=== PATIENT | female | born 1945 | race Caucasian/White ===

== ENCOUNTER 2017-11-14 00:43 | Emergency (ER) | payer OTHER ==
[2017-11-14] MEDS ORDERED: ASPIRIN 81 MG CHEWABLE TABLET ONE (01:33)
[2017-11-14] MEDS ORDERED: FAMOTIDINE 20 MG/2 ML VIAL IV ONE (01:33)
[2017-11-14] MEDS ORDERED: ENOXAPARIN 60 MG/0.6 ML SQ ONE (01:34)
--- NOTE | 2017-11-14 01:37 | EDPHYS ---
Physician Documentation [facility] Name: Huma Barrera Age: 72 yrs Sex: Female : 1945 Arrival Date: 11/14/2017 Time: 00:45 Bed 14 Private MD: ED Physician Dominick Morin HPI: 11/14 01:03 This 72 yrs old Female presents to ER via Ambulatory with complaints of Chest marly Pain, Shortness Of Breath. 01:03 The patient or guardian reports chest pain that is located primarily in the substernal marly area, anterior chest wall. Onset: gradually. The pain radiates to Associated signs and symptoms: Pertinent positives: abdominal pain, shortness of breath. The chest pain is described as a heaviness, a pressure, sharp. Duration: The patient or guardian reports multiple episodes, with no pattern. Modifying factors: The symptoms are alleviated by nothing. the symptoms are aggravated by nothing. Severity of pain: At its worst the pain was mild moderate in the emergency department the pain has improved moderately. The patient has experienced similar episodes in the past, multiple times. 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 - Social history:: Smoking status: Patient/guardian denies using tobacco, Patient/guardian denies using alcohol, street drugs. - Ebola Screening: : No symptoms or risks identified at this time. ROS: 01:03 Constitutional: Negative for fever, chills, and weight loss, Eyes: Negative for injury, marly pain, redness, and discharge, ENT: Negative for injury, pain, and discharge, Neck: Negative for injury, pain, and swelling, Cardiovascular: Negative for chest pain, palpitations, and edema, Abdomen/GI: Negative for abdominal pain, nausea, vomiting, diarrhea, and constipation, Back: Negative for injury and pain, : Negative for injury, bleeding, discharge, and swelling, MS/Extremity: Negative for injury and deformity, Skin: Negative for injury, rash, and discoloration, Neuro: Negative for headache, weakness, numbness, tingling, and seizure, Psych: Negative for depression, anxiety, suicide ideation, homicidal ideation, and hallucinations, Allergy/Immunology: Negative for hives, rash, and allergies, Endocrine: Negative for neck swelling, polydipsia, polyuria, polyphagia, and marked weight changes, Hematologic/Lymphatic: Negative for swollen nodes, abnormal bleeding, and unusual bruising. 01:03 Respiratory: Positive for cough, dyspnea on exertion, shortness of breath, wheezing, expiratory. Exam: 01:03 Constitutional: This is a well developed, well nourished patient who is awake, alert, marly and in no acute distress. Head/Face: Normocephalic, atraumatic. Eyes: Pupils equal round and reactive to light, extra-ocular motions intact. Lids and lashes normal. Conjunctiva and sclera are non-icteric and not injected. Cornea within normal limits. Periorbital areas with no swelling, redness, or edema. ENT: Nares patent. No nasal discharge, no septal abnormalities noted. Tympanic membranes are normal and external auditory canals are clear. Oropharynx with no redness, swelling, or masses, exudates, or evidence of obstruction, uvula midline. Mucous membranes moist. Neck: Trachea midline, no thyromegaly or masses palpated, and no cervical lymphadenopathy. Supple, full range of motion without nuchal rigidity, or vertebral point tenderness. No Meningismus. Chest/axilla: Normal chest wall appearance and motion. Nontender with no deformity. No lesions are appreciated. Cardiovascular: Regular rate and rhythm with a normal S1 and S2. No gallops, murmurs, or rubs. Normal PMI, no JVD. No pulse deficits. Abdomen/GI: Soft, non-tender, with normal bowel sounds. No distension or tympany. No guarding or rebound. No evidence of tenderness throughout. Back: No spinal tenderness. No costovertebral tenderness. Full range of motion. Skin: Warm, dry with normal turgor. Normal color with no rashes, no lesions, and no evidence of cellulitis. MS/ Extremity: Pulses equal, no cyanosis. Neurovascular intact. Full, normal range of motion. Neuro: Awake and alert, GCS 15, oriented to person, place, time, and situation. Cranial nerves II-XII grossly intact. Motor strength 5/5 in all extremities. Sensory grossly intact. Cerebellar exam normal. Normal gait. Psych: Awake, alert, with orientation to person, place and time. Behavior, mood, and affect are within normal limits. 01:03 Musculoskeletal/extremity: DVT Exam: No signs of deep vein thrombosis. no pain, no swelling, no tenderness, negative Homans' sign noted on exam, no appreciated bluish discoloration, no erythema, no increased warmth. Vital Signs: 01:05 BP 170 / 85; Pulse 88; Resp 18 S; Pulse Ox 98% on R/A; Weight 64.41 kg (R); Height 5 bb ft. 6 in. (167.64 cm) (R); Pain 10/10; 01:19 BP 137 / 65; Pulse 76; Resp 18; Pulse Ox 97% on R/A; aa1 01:35 Temp 98.2(O); aa1 02:09 BP 131 / 71; Pulse 78; Resp 18; Pulse Ox 97% on R/A; aa1 02:35 BP 120 / 79; Pulse 70; Resp 18; Pulse Ox 96% on R/A; aa1 03:00 BP 130 / 68; Pulse 71; Resp 16; Pulse Ox 98% on R/A; Pain 8/10; aa1 04:00 BP 127 / 83; Pulse 72; Resp 16; Pulse Ox 100% on R/A; aa1 04:59 BP 117 / 60; Pulse 54; Resp 16; Pulse Ox 97% on R/A; Pain 5/10; aa1 01:05 Body Mass Index 22.92 (64.41 kg, 167.64 cm) bb MDM: 01:00 Patient medically screened. [facility] 01:06 Data reviewed: vital signs, nurses notes, lab test result(s), EKG, . [facility] 11/14 01:03 Order name: Basic Metabolic Panel [facility] 11/14 01:03 Order name: CBC with Diff; Complete Time: 03:03 [facility] 11/14 01:03 Order name: Ckmb; Complete Time: 03:03 [facility] 11/14 01:03 Order name: CPK; Complete Time: 03:03 [facility] 11/14 01:03 Order name: LFT's; Complete Time: 03:03 [facility] 11/14 01:03 Order name: Magnesium; Complete Time: 03:03 [facility] 11/14 01:03 Order name: NT PRO-BNP; Complete Time: 03:03 [facility] 11/14 01:03 Order name: PT-INR; Complete Time: 03:03 [facility] 11/14 01:03 Order name: Ptt, Activated; Complete Time: 03:03 [facility] 11/14 01:03 Order name: Troponin (emerg Dept Use Only); Complete Time: 03:03 [facility] 11/14 01:03 Order name: Lipase; Complete Time: 03:03 [facility] 11/14 01:03 Order name: Urine Culture [facility] 11/14 01:03 Order name: Basic Metabolic Panel; Complete Time: 03:03 [facility] 11/14 02:13 Order name: Urine Dipstick--Ancillary (enter results) fl 11/14 01:03 Order name: XRAY Chest (1 view) [facility] 11/14 01:03 Order name: Cardiac monitoring; Complete Time: 02:36 [facility] 11/14 01:03 Order name: CT Aorta for Dissection [facility] 11/14 01:41 Order name: CONS Physician Consult [facility] 11/14 03:07 Order name: EKG; Complete Time: 03:07 [facility] 11/14 01:03 Order name: EKG - Nurse/Tech; Complete Time: 02:36 [facility] 11/14 01:03 Order name: IV Saline Lock; Complete Time: 02:36 [facility] 11/14 01:03 Order name: Labs collected and sent; Complete Time: 02:36 [facility] 11/14 01:03 Order name: O2 Per Protocol; Complete Time: 02:36 [facility] 11/14 01:03 Order name: O2 Sat Monitoring; Complete Time: 02:37 [facility] 11/14 01:03 Order name: Urine Dipstick-Ancillary (obtain specimen); Complete Time: 02:37 [facility] 11/14 03:07 Order name: EKG - Nurse/Tech; Complete Time: 03:39 marly Administered Medications: 01:31 Not Given (Duplicate Order): Lopressor (metoprolol TARTRATE) 50 mg PO once marly 01:34 Drug: Aspirin Chewable Tablet 324 mg Route: PO; aa1 02:30 Follow up: Response: No adverse reaction aa1 01:35 Drug: Pepcid 20 mg Route: IVP; Site: right wrist; aa1 02:30 Follow up: Response: No adverse reaction aa1 01:35 Drug: Lovenox 1 mg/kg Route: Sub-Q; Site: right lower abdomen; aa1 02:30 Follow up: Response: No adverse reaction aa1 02:35 Not Given (Physician Discretion): Lopressor 25 mg PO once aa1 03:30 Drug: Lopressor 25 mg Route: PO; aa1 04:30 Follow up: Response: No adverse reaction aa1 03:30 Drug: PlaVIX 600 mg Route: PO; aa1 04:30 Follow up: Response: No adverse reaction aa1 03:30 Drug: Phenergan 12.5 mg Route: IVP; Site: right wrist; aa1 04:30 Follow up: Response: No adverse reaction; Nausea is decreased aa1 03:33 Drug: fentaNYL (PF) 25 mcg Route: IVP; Site: right wrist; aa1 04:20 Follow up: Response: No adverse reaction; Pain is unchanged, physician notified aa1 04:25 Drug: fentaNYL (PF) 25 mcg Route: IVP; Site: right wrist; aa1 05:34 Follow up: Response: No adverse reaction; Pain is decreased aa1 Disposition: 11/14/17 03:[address] [facility]. Diagnosis are Other chest pain, Dyspnea, Non-ST elevation (NSTEMI) myocardial infarction. - Reason for transfer: Higher level of care. - [facility] - Condition is Fair. - Problem is new. - Symptoms have improved. Signatures: Dispatcher [employer] EDMA Heather Monsivais RN RN mw Kern, Alissa, RN RN aa1 Dominick Morin MD MD cha Ballard, Brenda, RN RN bb Corrections: (The following items were deleted from the chart) 01:42 01:37 Hospitalization Ordered by Jose Reeves MD for Observation. Preliminary [facility] diagnosis is Chest pain, unspecified. Bed requested for Telemetry/MedSurg (observation). Status is Observation. Condition is Fair. Problem is new. Symptoms have improved. UTI on Admission? No. marly 01:59 01:42 11/14/2017 01:37 Hospitalization Ordered by Jose Reeves MD for Observation. ashley Preliminary diagnosis is Chest pain, unspecified; Dyspnea. Bed requested for Telemetry/MedSurg (observation). Status is Observation. Condition is Fair. Problem is new. Symptoms have improved. UTI on Admission? No. marly 03:24 01:59 11/14/2017 01:37 Hospitalization Ordered by Jose Reeves MD for Observation. marly Preliminary diagnosis is Chest pain, unspecified; Dyspnea. Bed requested for Telemetry/MedSurg (observation). Status is Observation. Condition is Fair. Problem is new. Symptoms have improved. UTI on Admission? No. mw 03:45 03:27 11/14/2017 03:27 Transfer ordered to [facility]. Diagnosis is marly Other chest pain; Dyspnea; Non-ST elevation (NSTEMI) myocardial infarction. Reason for transfer: Higher level of care. Accepting physician is to [facility]. Condition is Fair. Problem is new. Symptoms have improved. marly 05:39 03:45 11/14/2017 03:[address] [facility]. Diagnosis is aa1 Other chest pain; Dyspnea; Non-ST elevation (NSTEMI) myocardial infarction. Reason for transfer: Higher level of care. [facility] Condition is Fair. Problem is new. Symptoms have improved. marly
--- NOTE | 2017-11-14 01:37 | ER ---
Nurse's Notes [facility] Name: Huma Barrera Age: 72 yrs Sex: Female : 1945 Arrival Date: 11/14/2017 Time: 00:45 Bed 14 Private MD: Diagnosis: Other chest pain;Dyspnea;Non-ST elevation (NSTEMI) myocardial infarction Presentation: 11/14 00:47 Presenting complaint: Patient states: she has been having chest pain since approx 1800 bb last night with shortness of breath and nausea. Transition of care: patient was not received from another setting of care. Onset of symptoms was November 13, 2017 at 18:00. Risk Assessment: Do you want to hurt yourself or someone else? Patient reports no desire to harm self or others. Initial Sepsis Screen: Does the patient meet any 2 criteria? No. Patient's initial sepsis screen is negative. Does the patient have a suspected source of infection? No. Patient's initial sepsis screen is negative. Care prior to arrival: None. 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 - Social history:: Smoking status: Patient/guardian denies using tobacco, Patient/guardian denies using alcohol, street drugs. - Ebola Screening: : No symptoms or risks identified at this time. Screenin:06 Abuse screen: Denies threats or abuse. Denies injuries from another. Nutritional aa1 screening: No deficits noted. Tuberculosis screening: No symptoms or risk factors identified. Fall Risk None identified. Assessment: 01:06 General: Appears in no apparent distress. comfortable, Behavior is calm, cooperative, aa1 appropriate for age. Pain: Complains of pain in chest Pain currently is 10 out of 10 on a pain scale. Quality of pain is described as burning, stinging, Pain began 1800 yesterday Is continuous. Neuro: Level of Consciousness is awake, alert, obeys commands, Oriented to person, place, time, situation, Moves all extremities. Full function Gait is steady, Speech is normal. Cardiovascular: Reports chest pain, nausea, palpitations, shortness of breath, Denies diaphoresis, syncope, vomiting, Heart tones S1 S2 present Capillary refill < 3 seconds Clubbing of nail beds is absent JVD is absent Patient's skin is warm and dry. Rhythm is regular. Respiratory: Reports cough that is non-productive, Airway is patent Respiratory effort is even, unlabored, Respiratory pattern is regular, symmetrical, Breath sounds are clear bilaterally. GI: Reports nausea, Patient currently denies abdominal pain, vomiting. : No signs and/or symptoms were reported regarding the genitourinary system. EENT: No signs and/or symptoms were reported regarding the EENT system. Derm: Skin is intact, is healthy with good turgor, Skin is pink, warm \T\ dry. Musculoskeletal: Circulation, motion, and sensation intact. Capillary refill < 3 seconds, Range of motion: intact in all extremities. 01:43 Reassessment: Patient appears in no apparent distress at this time. Patient and/or aa1 family updated on plan of care and expected duration. Pain level reassessed. Patient is alert, oriented x 3, equal unlabored respirations, skin warm/dry/pink. Awaiting lab results. 02:13 Reassessment: Patient appears in no apparent distress at this time. Patient and/or aa1 family updated on plan of care and expected duration. Pain level reassessed. Patient is alert, oriented x 3, equal unlabored respirations, skin warm/dry/pink. Pt taken to CT at this time. Bed assignment received however pt to stay in ED until CT has resulted. 03:00 Reassessment: Patient appears in no apparent distress at this time. Patient and/or aa1 family updated on plan of care and expected duration. Pain level reassessed. Patient is alert, oriented x 3, equal unlabored respirations, skin warm/dry/pink. Awaiting CT results. 04:00 Reassessment: Patient appears in no apparent distress at this time. Patient and/or aa1 family updated on plan of care and expected duration. Pain level reassessed. Patient is alert, oriented x 3, equal unlabored respirations, skin warm/dry/pink. Per MD pt to be transferred instead of being admitted to this facility. 04:53 Reassessment: Patient appears in no apparent distress at this time. Patient and/or aa1 family updated on plan of care and expected duration. Pain level reassessed. Patient is alert, oriented x 3, equal unlabored respirations, skin warm/dry/pink. Report given to Debbi Dean RN at [facility] Patient states feeling better. 05:20 Reassessment: Patient appears in no apparent distress at this time. Patient is alert, aa1 oriented x 3, equal unlabored respirations, skin warm/dry/pink. [facility] present for transport to [facility]. Vital Signs: 01:05 BP 170 / 85; Pulse 88; Resp 18 S; Pulse Ox 98% on R/A; Weight 64.41 kg (R); Height 5 bb ft. 6 in. (167.64 cm) (R); Pain 10/10; 01:19 BP 137 / 65; Pulse 76; Resp 18; Pulse Ox 97% on R/A; aa1 01:35 Temp 98.2(O); aa1 02:09 BP 131 / 71; Pulse 78; Resp 18; Pulse Ox 97% on R/A; aa1 02:35 BP 120 / 79; Pulse 70; Resp 18; Pulse Ox 96% on R/A; aa1 03:00 BP 130 / 68; Pulse 71; Resp 16; Pulse Ox 98% on R/A; Pain 8/10; aa1 04:00 BP 127 / 83; Pulse 72; Resp 16; Pulse Ox 100% on R/A; aa1 04:59 BP 117 / 60; Pulse 54; Resp 16; Pulse Ox 97% on R/A; Pain 5/10; aa1 01:05 Body Mass Index 22.92 (64.41 kg, 167.64 cm) bb ED Course: 00:45 Patient arrived in ED. al2 00:47 Cara Marrufo, RN is Primary Nurse. aa1 01:00 Dominick Morin MD is Attending Physician. marly 01:02 Triage completed. bb 01:05 Arm band placed on Patient placed in an exam room, on a stretcher, on monitor and storage bin tender, bb on pulse oximetry. EKG completed in triage. Results shown to MD. Family accompanied patient. 01:06 Patient has correct armband on for positive identification. Placed in gown. Bed in low aa1 position. Call light in reach. telemetry monitor on. Pulse ox on. NIBP on. 01:10 EKG done, by ED staff, reviewed by Dominick Morin MD. Patient maintains SpO2 saturation aa1 greater than 95% on room air. 01:12 Initial lab(s) drawn, by me, sent to lab. Inserted saline lock: 22 gauge in right aa1 wrist, using aseptic technique. Blood collected. 01:29 X-ray completed. Portable x-ray completed in exam room. Patient tolerated procedure kw well. 01:30 XRAY Chest (1 view) In Process Unspecified. EDMS 01:36 Jose Reeves MD is Hospitalizing Provider. marly 02:09 No provider procedures requiring assistance completed. Patient admitted, IV remains in aa1 place. 02:35 CT completed. Patient tolerated procedure well. Patient moved to CT via stretcher. Patient moved back from CT. Administered Medications: 01:31 Not Given (Duplicate Order): Lopressor (metoprolol TARTRATE) 50 mg PO once marly 01:34 Drug: Aspirin Chewable Tablet 324 mg Route: PO; aa1 02:30 Follow up: Response: No adverse reaction aa1 01:35 Drug: Pepcid 20 mg Route: IVP; Site: right wrist; aa1 02:30 Follow up: Response: No adverse reaction aa1 01:35 Drug: Lovenox 1 mg/kg Route: Sub-Q; Site: right lower abdomen; aa1 02:30 Follow up: Response: No adverse reaction aa1 02:35 Not Given (Physician Discretion): Lopressor 25 mg PO once aa1 03:30 Drug: Lopressor 25 mg Route: PO; aa1 04:30 Follow up: Response: No adverse reaction aa1 03:30 Drug: PlaVIX 600 mg Route: PO; aa1 04:30 Follow up: Response: No adverse reaction aa1 03:30 Drug: Phenergan 12.5 mg Route: IVP; Site: right wrist; aa1 04:30 Follow up: Response: No adverse reaction; Nausea is decreased aa1 03:33 Drug: fentaNYL (PF) 25 mcg Route: IVP; Site: right wrist; aa1 04:20 Follow up: Response: No adverse reaction; Pain is unchanged, physician notified aa1 04:25 Drug: fentaNYL (PF) 25 mcg Route: IVP; Site: right wrist; aa1 05:34 Follow up: Response: No adverse reaction; Pain is decreased aa1 Outcome: 01:37 Decision to Hospitalize by Provider. marly 03:27 ER care complete, transfer ordered by . marly 05:20 Transferred by ground EMS to [facility]. aa1 05:20 Condition: stable 05:20 Instructed on the need for admit, Demonstrated understanding of instructions. 05:39 Patient left the ED. aa1 Signatures: Dispatcher [employer] Cara Kline RN RN aa1 Dominick Morin MD MD cha Hagler, Catherine Brizuela RN RN Rachele Woods Angelica al2
[2017-11-14 01:53] LABS: MCH 28.1 pg (27.0-35.0)
[2017-11-14 01:54] LABS: Protime INR 0.98
[2017-11-14 02:02] LABS: ALT/SGPT 13 U/L (12-78); AST/SGOT 11 U/L (15-37); Albumin 3.3 g/dL (3.4-5.0); Alkaline Phosphatase 99 U/L (45-117); BUN Blood Urea Nitrogen 33 mg/dL (7-18); Bicarbonate 24 mmol/L (21-32); Bilirubin Direct < 0.1 mg/dL (0-0.2); Bilirubin Total 0.3 mg/dL (0.2-1.0); CKMB Creatine Kinase MB 3.5 ng/mL (0.3-3.6); Creatine Phosphokinase 100 U/L (26-192); Glucose Level 127 mg/dL (74-106); Lipase 170 U/L (73-393); Magnesium 2.1 mg/dL (1.8-2.4); NT PRO-BNP 163 pg/mL (<125); Potassium 3.6 mmol/L (3.5-5.1); Protein, Total 7.3 g/dL (6.4-8.2); Sodium Level 140 mmol/L (136-145)
[2017-11-14 02:07] LABS: Absolute Monocytes 0.9 K/uL (0.1-1.3); Basophils % 1.1 % (0-1.3); Eosinophils % 9.2 % (0-4.4); Hematocrit 39.4 % (36.0-45.0); Lymphocytes % 24.5 % (15.3-44.8); MCV 84.3 fL (80-100); MPV 9.9 fL (7.6-11.3); Monocytes % 7.5 % (3.3-12.3); RBC Red Blood Cell Count 4.67 M/uL (3.86-4.86)
[2017-11-14] MEDS ORDERED: MORPHINE 4 MG/ML SYR IV PRN (02:29)
[2017-11-14] MEDS ORDERED: ALPRAZOLAM 0.25 MG TABLET PO PRN (02:29)
[2017-11-14] MEDS ORDERED: ACETAMINOPHEN 500 MG TAB PO PRN (02:29)
[2017-11-14] MEDS ORDERED: PROMETHAZINE 25 MG/ML VIAL ONE (03:28)
[2017-11-14] MEDS ORDERED: CLOPIDOGREL 75 MG TABLET ONE (03:28)
[2017-11-14] MEDS ORDERED: FENTANYL CITR 100 MCG/2 ML ONE (03:28)
[2017-11-14] MEDS ORDERED: METOPROLOL TAR 25 MG TAB ONE (03:29)
[2017-11-14 04:39] LABS: Urine Blood TRACE (NEG); Urine Glucose NEGATIVE (NEG); Urine Protein TRACE (NEG)
--- NOTE | 2017-11-14 06:50 | RAD REPORT ---
EXAM DESCRIPTION: CT - Chest Abd Pelvis Wo Con - 11/14/2017 4:23 am CLINICAL HISTORY: Chest pain, shortness of breath, abdominal pain, past history of lung mass, renal disease and tracheomalacia A preliminary report was provided at the time of the study and reviewed prior to final report. COMPARISON: Chest films same date TECHNIQUE: During dynamic enhancement using 100 milliliters nonionic IV contrast, axial 5 millimeter thick images of the chest, abdomen and pelvis were obtained. Biphasic technique was utilized through the abdomen. No oral contrast was administered. All CT scans are performed using dose optimization technique as appropriate and may include automated exposure control or mA/KV adjustment according to patient size. FINDINGS: No mass or consolidation of the lung parenchyma. Mid and lower lung field interstitial and very sparse alveolar opacification. No pneumothorax or pleural effusion. No chest wall mass or abno rmal axillary lymphadenopathy seen. Mediastinal and hilar regions show no mass or lymphadenopathy. No significant cardiac finding. Patient has a moderate size hiatal hernia. No acute findings at the t racheostomy site. Liver and spleen show no suspicious findings. No acute gallbladder or biliary tree finding. Gallstone s can be occult. There is a slight fullness to the pancreatic tail compared to the head and body of the pancreas. This may simply be normal pancreatic parenchyma. The body and tail show volume loss or fatty infiltration . No stranding or acute peripancreatic process. Assessment is limited in the absence of contrast. No hydronephrosis or obstructing calculus. No acute renal parenchymal process seen. No adrenal abnorm alities. No urinary bladder abnormalities. Uterus and ovaries show no suspicious findings. No gastric dilatation or wall thickening. Assessment of the herniated portion is limited. Moderate st ool volume in the colon. An acute colon process is not identified. No free air, free fluid or inflamm atory stranding. No mass or bulky lymphadenopathy. No new or enlarging hernia defect. Patient has a very small incidental umbilical hernia. No significant bone or vascular finding. Degenerative changes are present without pathologic bone marly nge. IMPRESSION: Mildly prominent mid and lower lung field interstitial markings and minimal alveolar opa cification. A mild edema or infiltrate pattern is suspected and can be correlated with clinical prese ntation. No mass, consolidation or other emergent CT chest finding. Fullness of the pancreatic tail may simply be normal pancreatic tissue accentuated due to the volume loss or fatty infiltration involving the head and body of the pancreas. No pancreatitis findings. Thi s can be compared to any available outside prior imaging or further evaluated with contrast CT or MR imaging. Moderate-size hiatal hernia. No acute GI process identifiable.
--- NOTE | 2017-11-14 07:21 | RAD REPORT ---
EXAM DESCRIPTION: RAD - Chest Single View - 11/14/2017 1:30 am CLINICAL HISTORY: Chest pain, shortness of breath COMPARISON: November 2016 TECHNIQUE: AP portable chest image was obtained 0127 hours . FINDINGS: No peripheral consolidation or mass. Failure and volume overload are not suspected. Inters titial markings are prominent. On a shallow inspiration film interstitial edema and infiltrate could be masked. Heart and vasculature are normal. Hiatal hernia is present. No measurable pleural effusion and no pneumothorax. No gross bony abnormality seen. No acute aortic findings suspected. IMPRESSION: No focal consolidation or mass identified. Early interstitial edema or infiltrate could be masked.
[2017-11-14] MEDS ORDERED: METOPROLOL TAR 50 MG TAB PO SCH (09:00)
[2017-11-14] MEDS ORDERED: LISINOPRIL 10 MG TAB PO SCH (09:00)
[2017-11-14] MEDS ORDERED: ASPIRIN EC 81 MG TAB PO SCH (09:00)
[2017-11-14] MEDS ORDERED: ENOXAPARIN 40 MG/0.4 ML SQ SCH (09:00)
--- NOTE | 2017-11-14 09:01 | EKG ---
Test Date: 2017-11-14 Test Time: 03:10:37 Cable Installer: PANCHITO MEASUREMENT RESULTS: Intervals: Rate: 69 NV: 162 QRSD: 74 QT: 410 QTc: 439 [place]: P: 60 NV: 162 QRS: 12 T: 43 INTERPRETIVE STATEMENTS: Normal sinus rhythm Normal ECG Compared to ECG 12/04/2006 20:23:28 no significant change from previous ECG Electronically Signed On 11-14-17 09:00:56 CDT by Mika Torres
== END 2017-11-14 05:39 | disposition short-term general hospital (02) ==
LOC: ER 00:43 → ERHOLD 01:37 → UNDOADMOB 01:37 → ER 05:39
DX: I21.4 Non-ST elevation (NSTEMI) myocardial infarction (principal); R06.00 Dyspnea, unspecified; I48.91 Unspecified atrial fibrillation; Z88.0 Allergy status to penicillin; Z88.1 Allergy status to other antibiotic agents; Z88.7 Allergy status to serum and vaccine; Z88.8 Allergy status to other drugs, medicaments and biological substances
CPT/HCPCS: 36415; 71045; 71250; 74176; 80048; 80076; 81003; 82550; 82553; 83690; 83735; 83880; 84484; 85025; 85610; 85730; 87086; 87088; 93005; 96372; 96374; 96375; 99285; J1650; J2550; J3010

== ENCOUNTER → 2023-06-18 | Emergency (ER) | payer OTHER ==
[~2023-06-18] MED LIST: HYDROCODONE/APAP 10/325 TAB ONE; HYDROCODONE/APAP 5/325 MG TAB ONE; LIDOCAINE 1% 20 ML MDV ONE
[2023-06-18 20:31] LABS: Absolute Basophils 0.1 K/uL (0-0.5); Absolute Eosinophils 0.4 K/uL (0-0.5); Absolute Lymphocytes (CBC) 2.4 K/uL (0.7-4.9); Absolute Monocytes 0.5 K/uL (0.1-1.3); Absolute Neutrophil 4.2 K/uL (1.8-8.0); Basophils % 1.2 % (0-1.3); Eosinophils % 5.1 % (0-4.4); Hematocrit 38.8 % (36.0-45.0); Hemoglobin 12.8 g/dL (12.0-15.0); Lymphocytes % 31.5 % (15.3-44.8); MCH 26.3 pg (27.0-35.0); MCHC 33.1 g/dL (32.0-36.0); MCV 79.5 fL (80-100); MPV 8.6 fL (7.6-11.3); Monocytes % 6.6 % (3.3-12.3); Neutrophils % 55.6 % (41.7-73.7); Nucleated Red Blood Cells % 0.1 % (0-0); Platelets 363 thou/uL (152-406); RBC Red Blood Cell Count 4.88 M/uL (3.86-4.86); Red Cell Distribution Width 14.5 % (12.1-15.2)
[2023-06-18 20:44] LABS: Albumin 2.7 g/dL (3.4-5.0); Albumin/Globulin Ratio 0.6 (1.1-1.8); Anion Gap 14.8 mEq/L (5.0-15.0); Bilirubin Total 0.2 mg/dL (0.2-1.0); Globulin 4.3 g/dL (2.3-3.5); Potassium 2.8 mEq/L (3.5-5.1)
[2023-06-18 20:54] LABS: PT Prothrombin Time 10.7 SECONDS (9.5-12.5); PTT, Activated Partial Thromb 29.2 SECONDS (24.3-36.9); Protime INR 0.97
--- NOTE | 2023-06-18 21:25 | RAD REPORT ---
EXAM DESCRIPTION: CT - CTHCSPWOC - 06/18/2023 9:14 pm CLINICAL HISTORY: Trauma, head and neck injury. fall COMPARISON: NECK SOFT TISSUE W WO CONTRAS dated 12/04/2006 TECHNIQUE: Axial 5 mm thick images of the head were obtained. Axial 2 mm thick images of the cervical spine were obtained with sagittal and coronal reconstruction images generated and reviewed. All CT scans are performed using dose optimization technique as appropriate and may include automated exposure control or mA/KV adjustment according to patient size. FINDINGS: CT HEAD WITHOUT CONTRAST: No acute hemorrhage, hydrocephalus or extra-axial collection is identified.No areas of brain edema or midline shift. The paranasal sinuses and mastoids are clear.The calvarium is intact. CT CERVICAL SPINE WITHOUT CONTRAST: No fracture or subluxation.Mild to moderate midcervical degenerative change. 3 mm degenerative elaine listhesis of C3 on 4.No prevertebral soft tissues swelling is identified. IMPRESSION: No acute intracranial or cervical spine findings.
--- NOTE | 2023-06-18 21:26 | RAD REPORT ---
EXAM DESCRIPTION: RAD - Chest Single View - 06/18/2023 9:18 pm CLINICAL HISTORY: fall Chest pain. COMPARISON: Chest Pa And Lat (2 Views) dated 10/19/2019; Chest Single View dated 11/14/2017 FINDINGS: Portable technique limits examination quality. Mild linear atelectasis is present in the left lung base. The lungs are otherwise clear. Small hiatal hernia. The heart is normal in size. No displaced fractures. IMPRESSION: No acute intrathoracic process suspected.
--- NOTE | 2023-06-18 21:27 | RAD REPORT ---
EXAM DESCRIPTION: RAD - Knee Left 3 View - 06/18/2023 9:18 pm CLINICAL HISTORY: fall COMPARISON: No comparisons FINDINGS: Tricompartmental osteoarthritis is present, reaching severe in the medial compartment. The re is [id number] noted medially. No acute fracture or dislocation. Moderate suprapatellar joint eff usion.
--- NOTE | 2023-06-18 21:28 | RAD REPORT ---
EXAM DESCRIPTION: RAD - Pelvis - 06/18/2023 9:18 pm CLINICAL HISTORY: fall Fall, trauma, pain COMPARISON: No comparisons FINDINGS: Moderate bilateral hip osteoarthritis. No fracture, dislocation or AVN.
--- NOTE | 2023-06-18 23:45 | EDPHYS ---
Physician Documentation [facility] Name: Huma Barrera Age: 78 yrs Sex: Female : 1945 Arrival Date: 06/18/2023 Time: 19:40 Bed 17 Private MD: ED Physician Bart Muñoz HPI: 06/17 20:18 This 78 yrs old Female presents to ER via EMS with complaints of general sp4 complaint . 23:40 Very pleasant 78-year-old female presents with acute fall and head injury. Patient sp4 presents with laceration above right eyebrow after falling at home to hardwood floor. . Historical: - Allergies: 19:45 Cipro; ha1 19:45 Epinephrine; ha1 19:45 flu shot; ha1 19:45 Latex; ha1 19:45 Morphine; ha1 19:45 NS; ha1 19:45 PENICILLINS; ha1 19:45 pneumonia vaccine; ha1 19:45 Rocephin; ha1 19:45 Tetanus Vaccines \T\ Toxoid; ha1 19:45 TETRACYCLINES; ha1 19:45 Zofran; ha1 - Home Meds: 19:45 Bumex Oral 4 mg daily [Active]; Potassium Chloride Oral [Active]; ha1 - PMHx: 19:45 Arthritis; Asthma; Atrial Fib; avascular necrosis helder femur; knee meniscus tear; Mass ha1 in lung and Thyroid; Meniere's disease; Myocardial infarction; Pneumonia; Renal Disease; Tracheomalacia; - PSHx: 19:45 tracheostomy; ha1 - Immunization history:: Adult Immunizations not up to date. - Social history:: Smoking status: Patient denies any tobacco usage or history of. - Family history:: not pertinent. ROS: 23:40 Constitutional: Negative for fever, chills, and weight loss, positive head injury, sp4 positive forehead laceration 23:40 All other systems are negative, Exam: 23:46 Constitutional: This is a well developed, well nourished patient who is awake, alert, sp4 and in no acute distress. Head/Face: Normocephalic, there is moderate right periorbital contusion with right forehead laceration just above the right eyebrow involving right lateral eyebrow edge, laceration is irregular , no active bleeding, laceration estimated at 5 cm Eyes: Pupils equal round and reactive to light, extra-ocular motions intact. Lids and lashes normal. Conjunctiva and sclera are not injected. Cornea within normal limits. Periorbital areas with no swelling, redness, or edema. ENT: Nares patent. No nasal discharge, no septal abnormalities noted. Tympanic membranes are normal and external auditory canals are clear. Oropharynx with no redness, swelling, or masses, exudates, or evidence of obstruction, uvula midline. Mucous membranes moist. Neck: Trachea midline, no thyromegaly or masses palpated, and no cervical lymphadenopathy. Supple, full range of motion without nuchal rigidity, or vertebral point tenderness. Chest/axilla: Normal chest wall appearance and motion. Nontender with no deformity. No lesions are appreciated. Cardiovascular: Regular rate and rhythm with a normal S1 and S2. No gallops, murmurs, or rubs. Normal PMI, no JVD. No pulse deficits. Respiratory: Lungs have equal breath sounds bilaterally, clear to auscultation and percussion. No rales, rhonchi or wheezes noted. No increased work of breathing, no retractions or nasal flaring. Abdomen/GI: Soft, with normal bowel sounds. No distension or tympany. No guarding or rebound. No evidence of tenderness throughout. Back: No spinal tenderness. No costovertebral tenderness. Skin: Warm, dry with normal turgor. Normal color with no rashes, no lesions, and no evidence of cellulitis. MS/ Extremity: Pulses equal, no cyanosis. Neurovascular intact. Full, normal range of motion. Neuro: Awake and alert, GCS 15, oriented to person, place, time, and situation. Cranial nerves II-XII grossly intact. Motor strength 5/5 in all extremities. Sensory grossly intact. Psych: Awake, alert, with orientation to person, place and time. Behavior, mood, and affect are within normal limits Vital Signs: 19:46 BP 121 / 57; Pulse 70; Resp 17 S; Temp 98(O); Pulse Ox 97% on R/A; Weight 68.04 kg; ha1 Height 5 ft. 6 in. ; 21:00 BP 140 / 54; Pulse 67; Resp 17 S; Pulse Ox 98% on R/A; ha1 22:00 BP 128 / 54; Pulse 70; Resp 17 S; Pulse Ox 100% on R/A; ha1 23:00 BP 147 / 65; Pulse 69; Resp 17 S; Pulse Ox 99% on R/A; ha1 19:46 Body Mass Index 24.21 (68.04 kg, 167.64 cm) ha1 Mandy Coma Score: 23:46 Eye Response: spontaneous(4). Motor Response: obeys commands(6). Verbal Response: sp4 oriented(5). Total: 15. Laceration: 23:47 Wound Repair of 5cm ( 2.0in ) subcutaneous laceration to inner aspect of right eyebrow, sp4 middle aspect of right eyebrow and outer aspect of right eyebrow. Irregularly shaped.. Moderate contamination.. Distal neuro/vascular/tendon intact. Anesthesia: Wound infiltrated with 15 mls of 1% lidocaine. Wound prep: Moderate cleansing by me, Copious irrigation. Skin closed with 14 6-0 Prolene using interrupted sutures and sterile technique. Dressed with Neosporin. Patient tolerated well. MDM: 20:00 Patient medically screened. ec2 23:42 ED course: EXAM DESCRIPTION: CT - CTHCSPWOC - 06/18/2023 9:14 pm CLINICAL HISTORY: sp4 Trauma, head and neck injury. fall COMPARISON: NECK SOFT TISSUE W WO CONTRAS dated 12/04/2006 TECHNIQUE: Axial 5 mm thick images of the head were obtained. Axial 2 mm thick images of the cervical spine were obtained with sagittal and coronal reconstruction images generated and reviewed. All CT scans are performed using dose optimization technique as appropriate and may include automated exposure control or mA/KV adjustment according to patient size. FINDINGS: CT HEAD WITHOUT CONTRAST: No acute hemorrhage, hydrocephalus or extra-axial collection is identified.No areas of brain edema or midline shift. The paranasal sinuses and mastoids are clear.The calvarium is intact. CT CERVICAL SPINE WITHOUT CONTRAST: No fracture or subluxation.Mild to moderate midcervical degenerative change. 3 mm degenerative anterolisthesis of C3 on 4.No prevertebral soft tissues swelling is identified. IMPRESSION: No acute intracranial or cervical spine findings.. ED course: EXAM DESCRIPTION: RAD - Chest Single View - 06/18/2023 9:18 pm CLINICAL HISTORY: fall Chest pain. COMPARISON: Chest Pa And Lat (2 Views) dated 10/19/2019; Chest Single View dated 11/14/2017 FINDINGS: Portable technique limits examination quality. Mild linear atelectasis is present in the left lung base. The lungs are otherwise clear. Small hiatal hernia. The heart is normal in size. No displaced fractures. IMPRESSION: No acute intrathoracic process suspected. . ED course: EXAM DESCRIPTION: RAD - Pelvis - 06/18/2023 9:18 pm CLINICAL HISTORY: fall Fall, trauma, pain COMPARISON: No comparisons FINDINGS: Moderate bilateral hip osteoarthritis. No fracture, dislocation or AVN.. ED course: EXAM DESCRIPTION: RAD - Knee Left 3 View - 06/18/2023 9:18 pm CLINICAL HISTORY: fall COMPARISON: No comparisons FINDINGS: Tricompartmental osteoarthritis is present, reaching severe in the medial compartment. There is [id number] noted medially. No acute fracture or dislocation. Moderate suprapatellar joint effusion.. 23:47 Differential Diagnosis altered mental status, sepsis, flu, Head injury . Data reviewed: sp4 vital signs, nurses notes, lab test result(s), radiologic studies, CT scan. Consideration of Admission/Observation Escalation of care including admission/observation considered. ED course: Laceration repaired. Images negative. Patient stable for discharge home, laceration instructions provided, suture removal advised after 10 days. 06/17 20:01 Order name: CBC with Diff; Complete Time: 23:04 2 06/17 20:01 Order name: CMP; Complete Time: 23:04 2 06/17 20:01 Order name: Ptt, Activated; Complete Time: 23:04 2 06/17 20:01 Order name: PT-INR; Complete Time: 23:04 2 06/17 20:01 Order name: CT Head C Spine; Complete Time: 23:04 2 06/17 20:01 Order name: CXR XRAY; Complete Time: 23:04 2 06/17 20:01 Order name: Pelvis XRAY; Complete Time: 23:04 2 06/17 20:01 Order name: Knee Left 3 View XRAY; Complete Time: 23:04 2 06/17 20:35 Order name: Dressing - Wound; Complete Time: 23:20 sp4 06/17 20:35 Order name: Gloves, Sterile; Complete Time: 20:37 4 06/17 20:35 Order name: Setup Suture Tray; Complete Time: 20:37 sp4 Administered Medications: 20:57 CANCELLED (allergic): ondansetron4 mg PO once pf1 20:58 Drug: [place] PO 10 mg-325 mg 1 tabs PO once Route: PO; pf1 23:14 Drug: Lidocaine Infiltration (1 %) 20 ml 20 ml Infiltration once; to bedside {Note: ha1 administered by Dr. Muñoz .} Volume: 20 ml; Route: Infiltration; 06/18 00:00 Drug: HYDROcodone-acetaminophen PO 5 mg-325 mg 1 tabs PO once Route: PO; ha1 00:00 Drug: Zqtsqmlb-Qkxazdmtqn-Kbjncoovc Topical Ointment 1 application Topical once {Note: ha1 forehead.} Route: Topical; Site: affected area; Disposition Summary: 06/18/23 23:44 Discharge Ordered Notes: Suture removal after 10 days Location: Home sp4 Problem: new sp4 Symptoms: have improved sp4 Condition: Stable sp4 Diagnosis - Facial Laceration/ Laceration without foreign body of cheek and temporomandibular sp4 area - Acute fall at home, right forehead laceration, right periorbital contusion, left sp4 knee contusion, degenerative joint disease cervical spine Followup: sp4 - With: Private Physician - When: 10 - 14 days - Reason: Recheck today's complaints Discharge Instructions: - Discharge Summary Sheet sp4 - Facial Laceration, Hvad-rw-Yasc sp4 Forms: - Patient Portal Instructions sp4 Prescriptions: - Tramadol 50 mg Oral Tablet - take 1 tablet ORAL route every 8 hours as needed; 12 tablet; Refills: 0, sp4 Product Selection Permitted Signatures: Dispatcher [employer] Lavern Bruno RN RN ha1 Melba Clemons RN RN pf1 Bart Muñoz MD MD sp4 Pj An MD MD ec2 Corrections: (The following items were deleted from the chart) 06/17 20:57 20:34 Ondansetron PO 4 mg PO once ordered. sp4 pf1
--- NOTE | 2023-06-18 23:45 | ER ---
Nurse's Notes [facility] Name: Huma Barrera Age: 78 yrs Sex: Female : 1945 Arrival Date: 06/18/2023 Time: 19:40 Bed 17 Private MD: Diagnosis: Facial Laceration/ Laceration without foreign body of cheek and temporomandibular area;Acute fall at home, right forehead laceration, right periorbital contusion, left knee contusion, degenerative joint disease cervical spine Presentation: 06/17 19:46 Chief complaint: EMS states: 78 year old female was sitting on a chair and when trying ha1 to get to standing position she fell forward and hit her forehead. laceration on the forehead. bleeding stopped. dressing applied to laceration .NO LOC. No blood thinners. Coronavirus screen: Vaccine status: Patient reports being unvaccinated. Ebola Screen: No symptoms or risks identified at this time. Initial Sepsis Screen: Does the patient meet any 2 criteria? No. Patient's initial sepsis screen is negative. Does the patient have a suspected source of infection? No. Patient's initial sepsis screen is negative. Risk Assessment: Do you want to hurt yourself or someone else? Patient reports no desire to harm self or others. Onset of symptoms was June 18, 2023. 19:46 Method Of Arrival: EMS: [facility] ha1 19:46 Acuity: NORM 3 ha1 Triage Assessment: 19:45 General: Appears uncomfortable, Behavior is calm, cooperative. Pain: Complains of pain ha1 in forehead Pain does not radiate. Pain currently is 5 out of 10 on a pain scale. Quality of pain is described as burning, pressure. EENT: Eyes Sclera/Cornea are reddened in outer aspect of conjuctiva of right eye and inner aspect of conjuctiva of right eye. Neuro: Level of Consciousness is awake, alert, obeys commands, Oriented to person, place, time, situation. Cardiovascular: Capillary refill < 3 seconds Patient's skin is warm and dry. Respiratory: Airway is patent Respiratory effort is even, unlabored, Respiratory pattern is regular, symmetrical. Derm: Skin is pink, warm \T\ dry. Musculoskeletal: Circulation, motion, and sensation intact. Range of motion: intact in all extremities. Injury Description: Laceration sustained to forehead is 2.6 to 7.5 cm long, was sustained 1-2 hours ago. a small amount of bleeding noted at this time. A dressing was applied. Historical: - Allergies: 19:45 Cipro; ha1 19:45 Epinephrine; ha1 19:45 flu shot; ha1 19:45 Latex; ha1 19:45 Morphine; ha1 19:45 NS; ha1 19:45 PENICILLINS; ha1 19:45 pneumonia vaccine; ha1 19:45 Rocephin; ha1 19:45 Tetanus Vaccines \T\ Toxoid; ha1 19:45 TETRACYCLINES; ha1 19:45 Zofran; ha1 - Home Meds: 19:45 Bumex Oral 4 mg daily [Active]; Potassium Chloride Oral [Active]; ha1 - PMHx: 19:45 Arthritis; Asthma; Atrial Fib; avascular necrosis helder femur; knee meniscus tear; Mass ha1 in lung and Thyroid; Meniere's disease; Myocardial infarction; Pneumonia; Renal Disease; Tracheomalacia; - PSHx: 19:45 tracheostomy; ha1 - Immunization history:: Adult Immunizations not up to date. - Social history:: Smoking status: Patient denies any tobacco usage or history of. - Family history:: not pertinent. Screenin:45 Abuse screen: Denies threats or abuse. Denies injuries from another. Nutritional ha1 screening: No deficits noted. Tuberculosis screening: No symptoms or risk factors identified. Assessment: 19:45 Reassessment: SEE TRIAGE ASSESSMENT. ha1 21:00 Reassessment: Patient and/or family updated on plan of care and expected duration. Pain ha1 level reassessed. Patient is alert, oriented x 3, equal unlabored respirations, skin warm/dry/pink. 21:01 Reassessment: X-RAY IN THE ROOM. ha1 21:05 Reassessment: GOING TO CT. ha1 21:20 Reassessment: BACK FROM CT. ha1 22:00 Reassessment: Patient and/or family updated on plan of care and expected duration. Pain ha1 level reassessed. Patient is alert, oriented x 3, equal unlabored respirations, skin warm/dry/pink. 23:00 Reassessment: Patient and/or family updated on plan of care and expected duration. Pain ha1 level reassessed. Patient is alert, oriented x 3, equal unlabored respirations, skin warm/dry/pink. Vital Signs: 19:46 BP 121 / 57; Pulse 70; Resp 17 S; Temp 98(O); Pulse Ox 97% on R/A; Weight 68.04 kg; ha1 Height 5 ft. 6 in. ; 21:00 BP 140 / 54; Pulse 67; Resp 17 S; Pulse Ox 98% on R/A; ha1 22:00 BP 128 / 54; Pulse 70; Resp 17 S; Pulse Ox 100% on R/A; ha1 23:00 BP 147 / 65; Pulse 69; Resp 17 S; Pulse Ox 99% on R/A; ha1 19:46 Body Mass Index 24.21 (68.04 kg, 167.64 cm) ha1 Mandy Coma Score: 23:46 Eye Response: spontaneous(4). Motor Response: obeys commands(6). Verbal Response: sp4 oriented(5). Total: 15. ED Course: 19:45 Patient arrived in ED. ha1 19:45 Patient has correct armband on for positive identification. Placed in gown. Bed in low ha1 position. Call light in reach. Side rails up X 1. Adult w/ patient. 19:45 Client placed on continuous cardiac and pulse oximetry monitoring. NIBP monitoring ha1 applied. awake overnight monitor on. 19:46 Lavern Jarrell, RN is Primary Nurse. ha1 19:54 Triage completed. ha1 20:13 Inserted saline lock: 20 gauge in right forearm, using aseptic technique. Blood oe collected. 20:13 PT-INR Sent. oe 20:13 Initial lab(s) drawn, by me, sent to lab. oe 20:14 Ptt, Activated Sent. oe 20:14 CMP Sent. oe 20:14 CBC with Diff Sent. oe 20:18 Bart Muñoz MD is Attending Physician. sp4 20:27 Door closed. Warm blanket given. Pillow given. ha1 21:14 CT Head C Spine In Process Unspecified. EDMS 21:20 CXR XRAY In Process Unspecified. EDMS 21:20 Pelvis XRAY In Process Unspecified. EDMS 21:20 Knee Left 3 View XRAY In Process Unspecified. EDMS Administered Medications: 20:57 CANCELLED (allergic): ondansetron4 mg PO once pf1 20:58 Drug: [place] PO 10 mg-325 mg 1 tabs PO once Route: PO; pf1 23:14 Drug: Lidocaine Infiltration (1 %) 20 ml 20 ml Infiltration once; to bedside {Note: ha1 administered by Dr. Muñoz .} Volume: 20 ml; Route: Infiltration; 06/18 00:00 Drug: HYDROcodone-acetaminophen PO 5 mg-325 mg 1 tabs PO once Route: PO; ha1 00:00 Drug: [place] Topical Ointment 1 application Topical once {Note: ha1 forehead.} Route: Topical; Site: affected area; Outcome: 06/17 23:44 Discharge ordered by MD. garrett 06/18 00:13 Patient left the ED. ha1 Signatures: Dispatcher [employer] EDMS Dane Nguyen Heidy, RN RN ha1 Melba Clemons RN RN pf1 Bart Muñoz MD MD sp4
[2023-06-19 01:56] VITALS: BP 147/65; TEMP 98; O2SAT 99
== END ==
LOC: ER 19:40
PROC: 0HQ1XZZ Repair Face Skin, External Approach (ICD-10-PCS; principal; 2023-06-18)
DX: S01.81XA Laceration without foreign body of other part of head, initial encounter (principal); S05.11XA Contusion of eyeball and orbital tissues, right eye, initial encounter; S80.02XA Contusion of left knee, initial encounter; W18.30XA Fall on same level, unspecified, initial encounter; Y92.009 Unspecified place in unspecified non-institutional (private) residence as the place of occurrence of the external cause; M50.30 Other cervical disc degeneration, unspecified cervical region; Z88.0 Allergy status to penicillin; Z88.1 Allergy status to other antibiotic agents; Z88.5 Allergy status to narcotic agent; Z88.7 Allergy status to serum and vaccine; Z88.8 Allergy status to other drugs, medicaments and biological substances; Z91.040 Latex allergy status
CPT/HCPCS: 85025; 36415; 85610; 85730; 80053; 70450; 72125; 71045; 72170; 73562; 12013; J2001